=== PATIENT | female | born 1995 | race African-American/Black ===

== ENCOUNTER 2018-01-08 01:12 | Emergency (ER) | payer SELFPAY ==
[2018-01-08 01:16] VITALS: BP 136/80
--- NOTE | 2018-01-08 02:59 | EDPHY ---
H & P Stated Complaint: lip lac Time Seen by Provider: 01/08/18 02:53 HPI/ROS: HPI: The patient presents with lower lip laceration sustained just prior to arrival in the emergency department. She was helping a friend assemble a bed when a post hit her in the lip. She has had ongoing bleeding ever since. Her pain is minimal. She denies any other injuries. REVIEW OF SYSTEMS Constitutional: No fever, no chills. Eyes: No discharge. ENT: No sore throat. Skin: No rashes. Neurological: No headache. PMHx: Healthy TRAUMA PHYSICAL General Appearance: Alert, no distress Head: Atraumatic Eyes: Pupils equal, round, reactive ENT, Mouth: no oral trauma Respiratory: Breathing comfortably Skin: There is a 1 cm oblique left-sided lower lip laceration which does not involve the vermilion border which is superficial Neurological: A&Ox3 Source: Patient Exam Limitations: No limitations - Personal History LMP (Females 10-55): 1-7 Days Ago Current Tetanus/Diphtheria Vaccine: Yes - Medical/Surgical History Hx Asthma: No Hx Chronic Respiratory Disease: No Hx Diabetes: No Hx Cardiac Disease: No Hx Renal Disease: No Hx Cirrhosis: No Hx Alcoholism: No Hx HIV/AIDS: No Hx Splenectomy or Spleen Trauma: No Other PMH: denies - Social History Smoking Status: Never smoked Constitutional: Initial Vital Signs Temperature (C) 36.7 C 01/08/18 01:14 Heart Rate 85 01/08/18 01:14 Respiratory Rate 16 01/08/18 01:14 Blood Pressure 136/80 H 01/08/18 01:14 O2 Sat (%) 97 01/08/18 01:14 O2 Delivery Mode Room Air Allergies/Adverse Reactions: No Known Allergies Allergy (Unverified 01/08/18 01:14) Home Medications: Medication Instructions Recorded NK [No Known Home Meds] 01/08/18 Medical Decision Making Procedures: LACERATION REPAIR Procedure: Laceration repair. Verbal consent was obtained from the patient. The linear 1 cm laceration on the lower lip laceration not involving the vermilion border The wound was scrubbed, draped and explored to its base with a gloved finger. There were no deep structures involved. . The wound was repaired with Dermabond. The wound repair was simple. The procedure was performed by myself. Differential Diagnosis: This is a 22-year-old healthy female who presents with lower lip laceration sustained just prior to arrival when a bed post hit her lip. On exam, the wound is superficial though there is small amount of bleeding. It does not involve the vermilion border. I will treated with irrigation and Dermabond. She does not have any other injuries. Departure - Departure Disposition: Home, Routine, Self-Care Clinical Impression: Lip laceration Qualifiers: Encounter type: initial encounter Qualified Code(s): S01.511A - Laceration without foreign body of lip, initial encounter Condition: Good Instructions: Facial Laceration (ED), Skin Adhesive Care (ED) Referrals: DAQUAN Brice,. [Clinic] - As per Instructions
[2018-01-08] MEDS ORDERED: SKIN ADHESIVE (DERMABOND) 1 EACH TP ONE (03:24)
== END 2018-01-08 03:44 | disposition home or self-care (01) ==
PROC: 0CQ1XZZ Repair Lower Lip, External Approach (ICD-10-PCS; principal; 2018-01-08)
DX: S01.511A Laceration without foreign body of lip, initial encounter (principal); W22.8XXA Striking against or struck by other objects, initial encounter; Y93.D3 Activity, furniture building and finishing; Y99.8 Other external cause status